=== PATIENT | female | born 1950 | race Two or more races ===

== ENCOUNTER 2023-02-20 15:07 | Emergency (ER) | payer OTHER ==
[~2023-02-20] VITALS: Ht 160 cm; Wt 66.7 kg
[2023-02-20] MEDS ORDERED: LEVOTHYROXINE75 MCG PO (15:33)
== END 2023-02-20 19:02 | disposition home or self-care (01) ==
LOC: ER 15:07
DX: R05.9 Cough, unspecified (principal); Z20.822 Contact with and (suspected) exposure to COVID-19; Z88.6 Allergy status to analgesic agent